=== PATIENT | male | born 1960 ===

== ENCOUNTER 2022-11-29 11:28 | Outpatient (AMB) | payer MEDICARE, SELFPAY ==
[2022-11-29 11:29] VITALS: BP 122/64; PULSE 78; O2SAT 100; BMI 19.1
--- NOTE | 2022-11-29 11:29 | MHC.PC.OV ---
Vital Signs 11/29/22 11:29 Height 5 ft 7 in Weight 122 lb BMI 19.1 BP 122/64 Blood Pressure Location Lt brachial Position Sitting Pulse 78 Pulse Source Pulse Oximeter Temp Source Skin Pulse Oximetry (%) 100 Oxygen Delivery Method Room Air Intake Visit Reasons: Hypercholesterolemis, GERD Motor Tester Required: No Allergies fluoxetine [From PROZAC] Allergy (Unknown, Verified 11/29/22 11:30) UNKNOWN pantoprazole [From PROTONIX] Allergy (Unknown, Verified 11/29/22 11:30) fast heart rate Tobacco use date assessed: 11/29/22 Dental Screening Dental Screen Date: 11/29/22 Did you have a dental visit in the last 12 months?: No Did you have a dental problem in the last 6 months where you did not have access to dental care?: No HPI Hypercholesterolemis, GERD HPI Details 62-year-old male with a history of GERD schizophrenia hypercholesterolemia coming in for follow-up. Patient was seen by nurse practitioner last January 2022. decline counselling, colon test,. blod work advised . [facility] Medical History (Updated 11/29/22 @ 12:19 by Prosper Heard MD) Hiatal hernia Hypercholesterolemia Vitamin D deficiency Schizophrenia GERD (gastroesophageal reflux disease) Surgical History No pertinent past surgical history Family History Father Diabetes Hypertension CVD (cardiovascular disease) Hx of heart surgery Mother Bladder cancer Parkinson disease Maternal Grandmother Lung cancer Maternal Grandfather Lung cancer Social History Housing: Apartment Patient Tobacco Use Status: Never used Tobacco service: No Cognitive needs: No Hearing needs: No Vision needs: No Questionnaire PHQ-9 Over the last 2 weeks, how often have you been bothered by any of the following problems? 1. Little interest or pleasure in doing things: not at all 2. Feeling down, depressed, or hopeless: not at all 3. Trouble falling or staying asleep, or sleeping too much: not at all 4. Feeling tired or having little energy: not at all 5. Poor appetite or overeating: not at all 6. Feeling bad about yourself - or that you are a failure or have let yourself or your family down: not at all 7. Trouble concentrating on things, such as reading the newspaper or watching television: not at all 8. Moving or speaking so slowly that other people could have noticed. Or the opposite - being so fidgety or restless that you have been moving around a lot more than usual: not at all 9. Thoughts that you would be better off or of hurting yourself in some way: not at all Total score: 0 Depression Screening Interpretation: Negative Source: Developed by Drs. Keith Savage, Faiza Greco, Bishop Rodriguez and colleagues, with an educational rodolfo from [employer]. Thrive Questionnaire Date Thrive assessed: 11/29/22 I am a: Patient What is your living situation today?: I have a steady place to live Within the past 12 months, did the food you bought not last and you didn't have the money to get more?: Never true Within the past 12 months, did you worry whether your food would run out before you got money to buy more?: Never true Do you have trouble paying for medicines?: No Do you have trouble getting transportation to medical appointments?: No Do you have trouble paying your heating and electricity bill?: No Do you have trouble taking care of your child, family member or friend?: No Do you have trouble with day-to-day activities such as bathing, preparing meals, shopping, managing finances, etc.?: No Are you currently unemployed and looking for a job?: No Are you interested in more education?: No AUDIT C Alcohol Use Questionnaire (AUDIT-C) 1. How often do you have a drink containing alcohol?: Never 3. How often do you have six or more drinks on one occasion?: Never Total Score: 0 JEANNETTE-7 AMB Questionnaire JEANNETTE-7 Date JEANNETTE - 7 assessed: 11/29/22 Feeling nervous, anxious, or on edge: 0 = Not at all Not being able to stop or control worryin = Not at all Worrying too much about different things: 0 = Not at all Trouble relaxin = Not at all Being so restless that it is hard to sit still: 0 = Not at all Becoming easily annoyed or irritable: 0 = Not at all Feeling afraid as if something awful might happen: 0 = Not at all Total JEANNETTE-7 score (0-4 normal; 5-9 mild; 10-14 moderate; 15-21 severe): 0 Source: Developed by Drs. Keith Savage, Faiza Greco, Bishop Rodriguez and colleagues, with an educational rodolfo from [employer]. Physical exam (Primary Care) Vital Signs: Last Vital Signs Pulse 78 11/29/22 11:29 BP 122/64 11/29/22 11:29 Pulse Ox 100 11/29/22 11:29 Oxygen Delivery Method Room Air 11/29/22 11:29 BMI result Body Mass Index 19.1 Tobacco/Smoking Status: Tobacco use Status Tobacco use date assessed 11/29/22 11/29/22 11:30 Patient Tobacco Use Status Never used Tobacco 11/29/22 11:37 PHQ-9: PHQ-9 Score PHQ-9: Total score 0 11/29/22 11:43 Depression Screening Interpretation: Negative Thrive Assessment: Date of Thrive Assessment Date Thrive assessed 11/29/22 11/29/22 11:30 Const General: alert; No acute distress Eyes Conjunctivae: conjunctivae normal Resp Auscultation: clear to auscultation bilaterally Cardio Rate: regular rate Rhythm: regular rhythm GI Inspection: Yes normal to inspection Extrem General: Yes normal to inspection and No edema Assessment and Plan Assessment & Plan (1) GERD (gastroesophageal reflux disease): Code(s): K21.9 - Gastro-esophageal reflux disease without esophagitis Plan: Avoid the foods that causes that usually spicy foods, tomato products, juices, coffee, soda and foods that your sensitive to. After eating do not lie down, allow 3-4 hours before in lie down. And keep the head of bed above 30 degrees to avoid the acid from going up. (2) Schizophrenia: Code(s): F20.9 - Schizophrenia, unspecified Plan: Advised to get counseling and therapy (3) Hypercholesterolemia: Code(s): E78.00 - Pure hypercholesterolemia, unspecified Plan: Avoid fried foods, chicken skin, eggs, butter margarine, pastries and meat. Be it pork or beef they have a lot of cholesterol. Reminded about blood work (4) Colon cancer screening declined: Code(s): Z53.20 - Procedure and treatment not carried out because of patient's decision for unspecified reasons Orders: Orders Complete Blood Count Auto Diff Today E78.00 - Pure hypercholesterolemia, unspecified Comprehensive Met. Panel Today E78.00 - Pure hypercholesterolemia, unspecified Free T4 (Free Thyroxine) Today E78.00 - Pure hypercholesterolemia, unspecified Thyroid Stimulating Hormone Today E78.00 - Pure hypercholesterolemia, unspecified Vitamin B12 and Folate Today E78.00 - Pure hypercholesterolemia, unspecified Lipid Panel Today E78.00 - Pure hypercholesterolemia, unspecified Prostate Specific Antigen Scr Today E78.00 - Pure hypercholesterolemia, unspecified Coding Level of Care Code Est Pt Level 4 (25364) Diagnoses GERD (gastroesophageal reflux disease) K21.9 Schizophrenia F20.9 Hypercholesterolemia E78.00 Colon cancer screening declined Z53.20
== END 2022-11-29 12:35 | disposition home or self-care (01) ==
PROVIDERS: Visit Provider Internal Medicine
DX: K21.9 Gastro-esophageal reflux disease without esophagitis (principal); F20.9 Schizophrenia, unspecified; E78.00 Pure hypercholesterolemia, unspecified; Z53.20 Procedure and treatment not carried out because of patient's decision for unspecified reasons
CPT/HCPCS: 99214

== ENCOUNTER 2023-02-17 08:48 | Outpatient (AMB) | payer MEDICARE, SELFPAY ==
[2023-02-17 08:55] VITALS: BP 142/92; PULSE 81; O2SAT 98; BMI 19.1
--- NOTE | 2023-02-17 08:55 | AM.OFFVISMDC ---
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 Patient is here for an annual well visit. Patient was advised colonoscopy. Declined and so Cologuard was requested but this was not done also. Patient was also noted on the blood work have an elevated PSA patient has not had blood work done. [facility] Medical History (Updated 02/17/23 @ 19:00 by Prosper Heard MD) Hiatal hernia Hypercholesterolemia Vitamin D deficiency Schizophrenia GERD (gastroesophageal reflux disease) Surgical History No pertinent past surgical history Family History Father Diabetes Hypertension CVD (cardiovascular disease) Hx of heart surgery Mother Bladder cancer Parkinson disease Maternal Grandmother Lung cancer Maternal Grandfather Lung cancer Social History Housing: Apartment Patient Tobacco Use Status: Never used Tobacco service: No Cognitive needs: No Hearing needs: No Vision needs: No Questionnaire Medicare Wellness Checkup What is your age?: 65-69 (62) What gender do you identify with?: male During the past 4 weeks, how much have you been bothered by emotional problems such as feeling anxious, depressed, irritable, sad or downhearted, and blue?: slightly During the past 4 weeks, has your physical & emotional health limited your social activities with family, friends, neighbors, or groups?: not at all During the past 4 weeks, how much bodily pain have you generally had?: no pain During the past 4 weeks, was someone available to help you if you needed & wanted help?: no, not at all During the past 4 weeks, what was the hardest physical activity you could do for at least 2 minutes?: moderate Can you get to places out of walking distance without help? (For eg., can you travel alone on buses, taxis or drive your car?): No Can you go shopping for groceries or clothes without someone's help?: Yes Can you prepare your own meals?: Yes Can you do your housework without help?: Yes Because of any health problems, do you need the help of another person with your personal care needs such as eating, bathing, dressing or getting around the house?: No Can you handle your own money without help?: Yes During the past 4 weeks, how would you rate your health in general?: good During the past 4 weeks how have things been going for you?: pretty well Are you having difficulties driving your car?: not applicable, I don't use a car Do you always fasten your seat belt when you are in a car?: yes, usually During past 4 weeks, have you been bothered by the following: never: Trouble eating well? and Problems using the telephone?, seldom: Sexual problems? and Teeth or denture problems? and sometimes: Falling or dizzy when standing up and Tiredness or fatigue? Have you fallen 2 or more times in the past year?: No Are you afraid of falling?: No Are you a smoker?: no During the past 4 weeks, how many drinks of wine, beer, or other alcoholic beverages did you have?: no alcohol at all Do you exercise for about 20 minutes 3 or more times a week?: yes, all the time Have you been given information to help with the following?: yes: Keeping track of your medications? and no: Hazards in your house that might hurt you? How often do you have trouble taking medicines the way you have been told to take them?: sometimes I take medicine as prescribed How confident are you that you can control & manage most of your health problems?: I do not have any health problems What is your race?: White PHQ-9 Over the last 2 weeks, how often have you been bothered by any of the following problems? 1. Little interest or pleasure in doing things: not at all 2. Feeling down, depressed, or hopeless: not at all 3. Trouble falling or staying asleep, or sleeping too much: not at all 4. Feeling tired or having little energy: not at all 5. Poor appetite or overeating: not at all 6. Feeling bad about yourself - or that you are a failure or have let yourself or your family down: not at all 7. Trouble concentrating on things, such as reading the newspaper or watching television: not at all 8. Moving or speaking so slowly that other people could have noticed. Or the opposite - being so fidgety or restless that you have been moving around a lot more than usual: not at all 9. Thoughts that you would be better off or of hurting yourself in some way: not at all Total score: 0 95698 - PHQ-9 Billing: Yes Source: Developed by Drs. Keith Savage, Faiza Greco, Bishop Rodriguez and colleagues, with an educational rodolfo from [employer]. Review of Systems Const Denies poor appetite and Denies weakness Eyes Denies no additional complaints ENT Reports Normal hearing present, Denies dizziness, Denies nasal congestion, Denies tinnitus and Denies sore throat Card Denies chest pain, Denies syncope, Denies rapid heart rate and Denies dyspnea Resp Denies cough and Denies dyspnea GI Denies change in stool character, Reports constipation, Denies diarrhea, Denies nausea and Denies vomiting Denies dysuria and Denies urinary frequency Neuro Reports Normal hearing present, Denies confusion, Denies dizziness, Denies syncope and Denies weakness Psych Denies confusion Physical Exam Vital Signs: Last Vital Signs Pulse 81 02/17/23 08:55 BP 138/70 02/17/23 09:21 Pulse Ox 98 02/17/23 08:55 Oxygen Delivery Method Room Air 02/17/23 08:55 BMI result Body Mass Index 19.1 Const General: No confusion Orientation/consciousness: No confusion HEENT Head: Yes normocephalic Ears: external ears normal and TM's normal bilaterally Face and sinus: Yes normal facial exam Mouth: moist mucous membranes Throat: Yes tonsils normal Eyes Conjunctivae: conjunctivae normal Pupils: Equal, round and reactive pupils present and Pupil accommodation reflex normal Direct Ophthalmoscopy: normal light reflex Neck Neck: No lymphadenopathy Thyroid: Thyroid normal Chest Chest palpation & inspection: normal inspection of the chest Resp Effort & Inspection: normal respiratory effort and no audible wheezes Auscultation: clear to auscultation bilaterally, no crackles, no wheezes and lung sounds not diminished Cardio Rate: regular rate Rhythm: regular rhythm Peripheral pulses: radial pulses present and dorsalis pedis present GI Palpation (GI): no masses Auscultation: normal bowel sounds and normoactive bowel sounds Rectal Exam - Male: Yes deferred Skin General skin exam: no rashes or lesions noted Rashes: no rashes Neuro General: No confusion Cranial nerves: Yes Equal, round and reactive pupils present and Yes Normal hearing present Cognition (Neuro): normal cognition Gait exam (Neuro): Normal gait present Motor exam (neuro): 5/5 motor strength present throughout Deep tendon reflexes (DTR's): Right brachioradialis reflex intensity grade: 2+, Left brachioradialis reflex intensity grade: 2+, Right patellar reflex intensity grade: 2+ and Left patellar reflex intensity grade: 2+ Extrem General: No edema Assessment & Plan Assessment & Plan (1) Medicare annual wellness visit, subsequent: Code(s): Z00.00 - Encounter for general adult medical examination without abnormal findings Plan: Discussed about the blood work needs to be done as well as preventive measures like colon cancer screen (2) Colon cancer screening: Code(s): Z12.11 - Encounter for screening for malignant neoplasm of colon Plan: Reminded about the: Testing (3) PSA elevation: Code(s): R97.20 - Elevated prostate specific antigen [PSA] Plan: Patient is reminded again about the elevated PSA and the need to follow-up. (4) Hypercholesterolemia: Code(s): E78.00 - Pure hypercholesterolemia, unspecified Plan: Avoid fried foods, chicken skin, eggs, butter margarine, pastries and meat. Be it pork or beef they have a lot of cholesterol LDL goal of less than 130 and triglyceride of less than 150 (5) GERD (gastroesophageal reflux disease): Code(s): K21.9 - Gastro-esophageal reflux disease without esophagitis Qualifiers: Esophagitis presence: esophagitis presence not specified Qualified Code(s): K21.9 - Gastro-esophageal reflux disease without esophagitis Plan: Avoid the foods that causes that usually spicy foods, tomato products, juices, coffee, soda and foods that your sensitive to. After eating do not lie down, allow 3-4 hours before in lie down. And keep the head of bed above 30 degrees to avoid the acid from going up. (6) Schizophrenia: Code(s): F20.9 - Schizophrenia, unspecified Qualifiers: Schizophrenia type: other Qualified Code(s): F20.89 - Other schizophrenia Plan: Presently stable (7) Dysphagia: Code(s): R13.10 - Dysphagia, unspecified Qualifiers: Dysphagia type: oropharyngeal phase Qualified Code(s): R13.12 - Dysphagia, oropharyngeal phase Plan: barium swallow requested Orders: Orders PSA,Total (Free>4and<10) Today R97.20 - Elevated prostate specific antigen [PSA] Referrals Cologuard Test Z12.11 - Encounter for screening for malignant neoplasm of colon Quality Reporting (2019) Depression/Bipolar (159/160/161/177) PHQ-9: Total score: 0 Coding Level of Care Code Medicare Subsequent (G0439) Diagnoses Medicare annual wellness visit, subsequent Z00.00 Colon cancer screening Z12.11 PSA elevation R97.20 Hypercholesterolemia E78.00 Gastroesophageal reflux disease, unspecified whether esophagitis present K21.9 Esophagitis presence: esophagitis presence not specified Other schizophrenia F20.89 Schizophrenia type: other Oropharyngeal dysphagia R13.12 Dysphagia type: oropharyngeal phase
[2023-02-17 09:21] VITALS: BP 138/70
== END 2023-02-17 09:50 | disposition home or self-care (01) ==
PROVIDERS: PCP Internal Medicine; Visit Provider Internal Medicine
DX: Z00.00 Encounter for general adult medical examination without abnormal findings (principal); F20.89 Other schizophrenia; R97.20 Elevated prostate specific antigen [PSA]; E78.00 Pure hypercholesterolemia, unspecified; K21.9 Gastro-esophageal reflux disease without esophagitis; R13.12 Dysphagia, oropharyngeal phase
CPT/HCPCS: G0439

== ENCOUNTER 2023-02-17 10:11 | Outpatient (REF) | payer MEDICARE, SELFPAY ==
[2023-02-17 11:58] LABS: Alanine Aminotransferase 14 U/L (0-40); Albumin Level 4.5 g/dL (3.5-5.0); Alkaline Phosphatase 49 U/L (39-117); Anion Gap 13 (12-20); Aspartate Amino Transferase 26 U/L (5-37); Bilirubin Total 0.3 mg/dL (0.0-1.0); Blood Urea Nitrogen 16 mg/dL (9-16); Calcium 9.8 mg/dL (8.4-10.2); Carbon Dioxide 28 mmol/L (22-29); Chloride 101 mmol/L (96-108); Estimated Glomerular Filt Rate > 60; Glucose Random 104 mg/dL (60-115); Potassium 4.1 mmol/L (3.3-5.1); Sodium 138 mmol/L (135-145); Total Protein 7.9 g/dL (6.5-8.0)
[2023-02-17 12:17] LABS: Thyroid Stimulating Hormone 0.62 uIU/mL (0.32-4.0)
== END 2023-02-17 10:12 | disposition home or self-care (01) ==
LOC: HO.LAB 10:11
PROVIDERS: PCP Internal Medicine; Visit Provider Internal Medicine
DX: E78.00 Pure hypercholesterolemia, unspecified (principal)
CPT/HCPCS: 36415; 80053; 84439; 84443

== ENCOUNTER 2023-02-18 13:13 | Outpatient (REF) | payer MEDICARE, SELFPAY ==
[2023-02-18 13:24] LABS: MANUAL DIFF FLAG NO
[2023-02-18 13:54] LABS: Basophils Absolute Auto 0.1 X10*3/uL (0.0-0.2); Basophils Percent Auto 1.1 % (0-2); Eosinophils Absolute Auto 0.1 X10*3/uL (0.0-0.4); Eosinophils Percent Auto 1.7 % (0-4); Hematocrit 46.2 % (42.0-52.0); Hemoglobin 15.1 g/dl (14.0-18.0); Imm Gran Abs Auto 0.05 X10*3/uL (0.00-0.03); Imm Gran Pct Auto 0.8 % (0.0-0.4); Lymphocytes Absolute Auto 1.8 X10*3/uL (1.2-4.9); Lymphocytes Percent Auto 27.7 % (20-40); Mean Corpuscular HGB Conc 32.7 g/dl (31.0-36.0); Mean Corpuscular Volume 91.7 fL (80.0-98.0); Mean Platelet Volume 9.5 fL (9.4-12.4); Monocytes Absolute Auto 0.5 X10*3/uL (0.1-1.2); Monocytes Percent Auto 7.6 % (2-11); Neutrophils Absolute Auto 3.9 x10*3/uL (2.0-8.3); Neutrophils Percent Auto 61.1 % (45-73); Platelet Count 312 X10*3/uL (160-400); Red Blood Count 5.04 X10*6/uL (4.60-5.80); White Blood Count 6.3 X10*3/uL (4.8-10.8)
[2023-02-18 14:40] LABS: PSA,Total (Free>4and<10) 3.41 ng/mL (0.00-4.00)
[2023-02-18 14:53] LABS: Folate 11.6 ng/mL (> or = 4.0); Vitamin B12 479 pg/mL (200-900)
== END 2023-02-18 13:14 | disposition home or self-care (01) ==
LOC: HO.LAB 13:13
PROVIDERS: PCP Internal Medicine; Visit Provider Internal Medicine
DX: E78.00 Pure hypercholesterolemia, unspecified (principal); R97.20 Elevated prostate specific antigen [PSA]; Z12.5 Encounter for screening for malignant neoplasm of prostate
CPT/HCPCS: 36415; 82607; 82746; 84153; 85025

== ENCOUNTER 2023-05-23 12:56 | Outpatient (AMB) | payer MEDICARE, SELFPAY ==
[2023-05-23 12:57] VITALS: BP 142/70; PULSE 96; O2SAT 97; BMI 20.2
--- NOTE | 2023-05-23 12:57 | A.OFFPC_ITS ---
Vital Signs 05/23/23 12:57 05/23/23 13:10 Height 5 ft 7 in Weight 129 lb 0.6 oz BMI 20.2 BP 142/70 H 160/80 H Blood Pressure Location Lt brachial Lt brachial Position Sitting Sitting Pulse 96 Pulse Source Pulse Oximeter Pulse Oximetry (%) 97 Oxygen Delivery Method Room Air Intake Visit Reasons: gerd, schizophrenia Intake Note: Patient is here to follow up Banking Analyst Required: No Allergies fluoxetine [From PROZAC] Allergy (Unknown, Verified 05/23/23 13:01) UNKNOWN pantoprazole [From PROTONIX] Allergy (Unknown, Verified 05/23/23 13:01) fast heart rate Tobacco use date assessed: 05/23/23 Dental Screening Dental Screen Date: 05/23/23 HPI gerd, schizophrenia HPI Details 62-year-old male with schizophrenia with a history of hypercholesterolemia GERD coming in for follow-up. Last seen for physical exam/wellness February 2023. Concern on [employer] amirah ride on new family car. - concern episodes of personality changes and doing things family is not approving off. Discussed with the patient that if this gets persistent will need to get psychiatric help for patient safety. Meanwhile concerned blood pressure is elevated [facility] Medical History (Updated 05/23/23 @ 13:23 by Prosper Heard MD) Hiatal hernia Hypercholesterolemia Vitamin D deficiency Schizophrenia GERD (gastroesophageal reflux disease) Surgical History No pertinent past surgical history Family History Father Diabetes Hypertension CVD (cardiovascular disease) Hx of heart surgery Mother Bladder cancer Parkinson disease Maternal Grandmother Lung cancer Maternal Grandfather Lung cancer Social History Housing: Apartment Patient Tobacco Use Status: Never used Tobacco service: No Cognitive needs: No Hearing needs: No Vision needs: No Questionnaire PHQ-9 Over the last 2 weeks, how often have you been bothered by any of the following problems? 1. Little interest or pleasure in doing things: not at all 2. Feeling down, depressed, or hopeless: not at all 3. Trouble falling or staying asleep, or sleeping too much: not at all 4. Feeling tired or having little energy: not at all 5. Poor appetite or overeating: not at all 6. Feeling bad about yourself - or that you are a failure or have let yourself or your family down: not at all 7. Trouble concentrating on things, such as reading the newspaper or watching television: not at all 8. Moving or speaking so slowly that other people could have noticed. Or the opposite - being so fidgety or restless that you have been moving around a lot more than usual: not at all 9. Thoughts that you would be better off or of hurting yourself in some way: not at all Total score: 0 Depression Screening Interpretation: Negative Depression Screening Done: Yes Source: Developed by Drs. Keith Savage, Faiza Greco, Bishop Rodriguez and colleagues, with an educational rodolfo from [employer] (formerly [employer]). Thrive Questionnaire Date Thrive assessed: 05/23/23 I am a: Patient What is your living situation today?: I have a steady place to live Within the past 12 months, did the food you bought not last and you didn't have the money to get more?: Never true Within the past 12 months, did you worry whether your food would run out before you got money to buy more?: Never true Do you have trouble paying for medicines?: No Do you have trouble getting transportation to medical appointments?: No Do you have trouble paying your heating and electricity bill?: No Do you have trouble taking care of your child, family member or friend?: No Do you have trouble with day-to-day activities such as bathing, preparing meals, shopping, managing finances, etc.?: No Are you currently unemployed and looking for a job?: No Are you interested in more education?: No THRIVE Score: 0 AUDIT C Alcohol Use Questionnaire (AUDIT-C) 1. How often do you have a drink containing alcohol?: Never 3. How often do you have six or more drinks on one occasion?: Never Total Score: 0 JEANNETTE-7 AMB Questionnaire JEANNETTE-7 Date JEANNETTE - 7 assessed: 05/23/23 Feeling nervous, anxious, or on edge: 0 = Not at all Not being able to stop or control worryin = Not at all Worrying too much about different things: 0 = Not at all Trouble relaxin = Not at all Being so restless that it is hard to sit still: 0 = Not at all Becoming easily annoyed or irritable: 0 = Not at all Feeling afraid as if something awful might happen: 0 = Not at all Total JEANNETTE-7 score (0-4 normal; 5-9 mild; 10-14 moderate; 15-21 severe): 0 Source: Developed by Drs. Keith Savage, Faiza Greco, Bishop Rodriguez and colleagues, with an educational rodolfo from [employer] (formerly [employer]). Physical exam (Primary Care) Vital Signs: Last Vital Signs Pulse 96 05/23/23 12:57 BP 142/70 H 05/23/23 12:57 Pulse Ox 97 05/23/23 12:57 Oxygen Delivery Method Room Air 05/23/23 12:57 BMI result Body Mass Index 20.2 Tobacco/Smoking Status: Tobacco use Status Tobacco use date assessed 05/23/23 05/23/23 13:05 Patient Tobacco Use Status Never used Tobacco 05/23/23 13:05 PHQ-9: PHQ-9 Score PHQ-9: Total score 0 05/23/23 13:05 Depression Screening Interpretation: Negative Thrive Assessment: Date of Thrive Assessment Date Thrive assessed 05/23/23 05/23/23 13:05 Const General: alert; No acute distress Eyes Conjunctivae: conjunctivae normal Resp Auscultation: clear to auscultation bilaterally Cardio Rate: regular rate Rhythm: regular rhythm GI Inspection: Yes normal to inspection Extrem General: Yes normal to inspection and No edema Assessment and Plan Assessment & Plan (1) GERD (gastroesophageal reflux disease): Code(s): K21.9 - Gastro-esophageal reflux disease without esophagitis Qualifiers: Esophagitis presence: esophagitis presence not specified Qualified Code(s): K21.9 - Gastro-esophageal reflux disease without esophagitis Plan: Avoid the foods that causes that usually spicy foods, tomato products, juices, coffee, soda and foods that your sensitive to. After eating do not lie down, allow 3-4 hours before in lie down. And keep the head of bed above 30 degrees to avoid the acid from going up. Presently on omeprazole (2) Dysphagia: Code(s): R13.10 - Dysphagia, unspecified Qualifiers: Dysphagia type: oropharyngeal phase Qualified Code(s): R13.12 - Dysphagia, oropharyngeal phase Plan: Patient has not done the test (3) PSA elevation: Code(s): R97.20 - Elevated prostate specific antigen [PSA] Plan: Continue to monitor February 2023 last blood work (4) Colon cancer screening: Code(s): Z12.11 - Encounter for screening for malignant neoplasm of colon Plan: Declined colonoscopy (5) Schizophrenia: Code(s): F20.9 - Schizophrenia, unspecified Qualifiers: Schizophrenia type: other Qualified Code(s): F20.89 - Other schizophrenia Plan: Stable presently (6) Hypercholesterolemia: Code(s): E78.00 - Pure hypercholesterolemia, unspecified Plan: Avoid fried foods, chicken skin, eggs, butter margarine, pastries and meat. Be it pork or beef they have a lot of cholesterol (7) Blood pressure elevated without history of HTN: Code(s): R03.0 - Elevated blood-pressure reading, without diagnosis of hypertension Plan: Decrease salt intake and continue to monitor blood pressure. And record Coding Level of Care Code Est Pt Level 4 (25344) Diagnoses Gastroesophageal reflux disease, unspecified whether esophagitis present K21.9 Esophagitis presence: esophagitis presence not specified Oropharyngeal dysphagia R13.12 Dysphagia type: oropharyngeal phase PSA elevation R97.20 Colon cancer screening Z12.11 Other schizophrenia F20.89 Schizophrenia type: other Hypercholesterolemia E78.00 Blood pressure elevated without history of HTN R03.0
[2023-05-23 13:10] VITALS: BP 160/80
== END 2023-05-23 13:25 | disposition home or self-care (01) ==
PROVIDERS: PCP Internal Medicine; Visit Provider Internal Medicine
DX: K21.9 Gastro-esophageal reflux disease without esophagitis (principal); F20.89 Other schizophrenia; R13.12 Dysphagia, oropharyngeal phase; R97.20 Elevated prostate specific antigen [PSA]; Z12.11 Encounter for screening for malignant neoplasm of colon; E78.00 Pure hypercholesterolemia, unspecified; R03.0 Elevated blood-pressure reading, without diagnosis of hypertension
CPT/HCPCS: 99214

== ENCOUNTER 2024-03-05 11:20 | Outpatient (AMB) | payer MEDICARE, SELFPAY ==
--- NOTE | 2024-03-05 11:24 | AM.OFFVISMDC ---
Intake Vital Signs 03/05/24 11:25 Height 5 ft 7 in Weight 120 lb 2 oz BMI 18.8 BP 130/78 Blood Pressure Location Lt brachial Position Sitting Pulse 92 Pulse Source Pulse Oximeter Pulse Oximetry (%) 97 Oxygen Delivery Method Room Air Intake Visit Reasons: SWV [id number] Allergies fluoxetine [From PROZAC] Allergy (Unknown, Verified 03/05/24 11:29) UNKNOWN pantoprazole [From PROTONIX] Allergy (Unknown, Verified 03/05/24 11:29) fast heart rate Medication List - Last Reconciled 03/05/24 by Prosper Heard MD brimonidine 0.2% 1 drp ophthalmic (eye) BID omeprazole 20 mg PO DAILY HPI SWV G0439 HPI Details The patient is a 63-year-old male presenting with recent weight loss noted as 9 pounds since the last visit. He typically fluctuates between 122 to 129 pounds but this recent loss is significant. His history includes issues with swallowing, though currently he is not experiencing any significant problems and reports good control. Previously, he experienced adverse reactions to pantoprazole and is now currently taking omeprazole. He wears noise-canceling headgear frequently leading to temporary auditory isolation, . The patient denies new surgeries or diagnoses but exhibits strained family relationships potentially linked to behavioral concerns. - Recommended getting the shingles vaccine (not done at the clinic but available in pharmacies). - Encouraged flu vaccination for the current season which the patient has received. - Discussed prostate health management with specific instructions concerning biking restrictions prior to PSA testing to prevent elevated levels. - Regular exercise regimen includes using an elliptical and biking, although rides are nocturnal. - Denies use of tobacco, drugs, or alcohol. - Lives independently but reports conflicts with neighbors, showing potentially concerning behaviors such as pouring gasoline on lawns. - Experiences intermittent sleep with frequent nighttime urination. - Ears: Reports hearing issues due to headgear use. - Gastrointestinal: Denies nausea and vomiting but reports occasional swallowing difficulty. - Genitourinary: Reports nocturia. - Exercise: Reports frequent use of elliptical and biking. Family has expressed patient's lack of inhibition with regards to samples of patient's daughter who does not want to meet with him has been trying to make knocking noises to get somebody is attention at home patient in the office was knocking on wall making sounds. And the previous interaction of throwing gas in somebody else's lawn. Discussed my concerns with this and that if needed to let me know if the behavior continuous. [facility] Medical History Hiatal hernia Hypercholesterolemia Vitamin D deficiency Schizophrenia GERD (gastroesophageal reflux disease) Surgical History No pertinent past surgical history Family History Father Diabetes Hypertension CVD (cardiovascular disease) Hx of heart surgery Mother Bladder cancer Parkinson disease Maternal Grandmother Lung cancer Maternal Grandfather Lung cancer Social History Housing: Apartment Patient Tobacco Use Status: Never used Tobacco service: No Cognitive needs: No Hearing needs: No Vision needs: No Questionnaire Medicare Wellness Checkup What gender do you identify with?: male During the past 4 weeks, how much have you been bothered by emotional problems such as feeling anxious, depressed, irritable, sad or downhearted, and blue?: slightly During the past 4 weeks, has your physical & emotional health limited your social activities with family, friends, neighbors, or groups?: not at all During the past 4 weeks, how much bodily pain have you generally had?: very mild pain During the past 4 weeks, was someone available to help you if you needed & wanted help?: yes, quite a bit During the past 4 weeks, what was the hardest physical activity you could do for at least 2 minutes?: heavy Can you get to places out of walking distance without help? (For eg., can you travel alone on buses, taxis or drive your car?): Yes Can you go shopping for groceries or clothes without someone's help?: Yes Can you prepare your own meals?: Yes Can you do your housework without help?: Yes Because of any health problems, do you need the help of another person with your personal care needs such as eating, bathing, dressing or getting around the house?: Yes Can you handle your own money without help?: No (cousin helps) During the past 4 weeks, how would you rate your health in general?: good During the past 4 weeks how have things been going for you?: pretty well Are you having difficulties driving your car?: not applicable, I don't use a car Do you always fasten your seat belt when you are in a car?: yes, usually During past 4 weeks, have you been bothered by the following: never: Falling or dizzy when standing up, Sexual problems?, Trouble eating well?, Teeth or denture problems? and Problems using the telephone? and seldom: Tiredness or fatigue? Have you fallen 2 or more times in the past year?: No Are you afraid of falling?: No Are you a smoker?: no During the past 4 weeks, how many drinks of wine, beer, or other alcoholic beverages did you have?: no alcohol at all Do you exercise for about 20 minutes 3 or more times a week?: yes, all the time Have you been given information to help with the following?: yes: Hazards in your house that might hurt you? and yes: Keeping track of your medications? How often do you have trouble taking medicines the way you have been told to take them?: I always take medicine as prescribed How confident are you that you can control & manage most of your health problems?: very confident What is your race?: White PHQ-9 Over the last 2 weeks, how often have you been bothered by any of the following problems? 1. Little interest or pleasure in doing things: not at all 2. Feeling down, depressed, or hopeless: not at all 3. Trouble falling or staying asleep, or sleeping too much: not at all 4. Feeling tired or having little energy: not at all 5. Poor appetite or overeating: not at all 6. Feeling bad about yourself - or that you are a failure or have let yourself or your family down: not at all 7. Trouble concentrating on things, such as reading the newspaper or watching television: not at all 8. Moving or speaking so slowly that other people could have noticed. Or the opposite - being so fidgety or restless that you have been moving around a lot more than usual: not at all 9. Thoughts that you would be better off or of hurting yourself in some way: not at all Total score: 0 Depression Screening Interpretation: Negative Depression Screening Done: Yes 72370 - PHQ-9 Billing: Yes Source: Developed by Drs. Keith Savage, Faiza Greco, Bishop Rodriguez and colleagues, with an educational rodolfo from [employer]. Review of Systems Const Denies poor appetite and Denies weakness Eyes Denies no additional complaints ENT Reports Normal hearing present, Denies dizziness, Denies nasal congestion, Denies tinnitus and Denies sore throat Card Denies chest pain, Denies syncope, Denies rapid heart rate and Denies dyspnea Resp Denies cough and Denies dyspnea GI Denies change in stool character, Reports constipation, Denies diarrhea, Denies nausea and Denies vomiting Denies dysuria and Denies urinary frequency Neuro Reports Normal hearing present, Denies confusion, Denies dizziness, Denies syncope and Denies weakness Psych Denies confusion Physical Exam Vital Signs: Last Vital Signs Pulse 92 03/05/24 11:25 BP 130/78 03/05/24 11:25 Pulse Ox 97 03/05/24 11:25 Oxygen Delivery Method Room Air 03/05/24 11:25 BMI result Body Mass Index 18.8 Const General: No confusion Orientation/consciousness: No confusion HEENT Head: Yes normocephalic Ears: external ears normal and TM's normal bilaterally Face and sinus: Yes normal facial exam Mouth: moist mucous membranes Throat: Yes tonsils normal Eyes Conjunctivae: conjunctivae normal Pupils: Equal, round and reactive pupils present and Pupil accommodation reflex normal Direct Ophthalmoscopy: normal light reflex Neck Neck: No lymphadenopathy Thyroid: Thyroid normal Chest Chest palpation & inspection: normal inspection of the chest Resp Effort & Inspection: normal respiratory effort and no audible wheezes Auscultation: clear to auscultation bilaterally, no crackles, no wheezes and lung sounds not diminished Cardio Rate: regular rate Rhythm: regular rhythm Peripheral pulses: radial pulses present and dorsalis pedis present GI Other: declined Palpation (GI): no masses Auscultation: normal bowel sounds and normoactive bowel sounds Rectal Exam - Male: Yes deferred Other: declined Skin General skin exam: no rashes or lesions noted Rashes: no rashes Neuro General: No confusion Cranial nerves: Yes Equal, round and reactive pupils present and Yes Normal hearing present Cognition (Neuro): normal cognition Gait exam (Neuro): Normal gait present Motor exam (neuro): 5/5 motor strength present throughout Deep tendon reflexes (DTR's): Right brachioradialis reflex intensity grade: 2+, Left brachioradialis reflex intensity grade: 2+, Right patellar reflex intensity grade: 2+ and Left patellar reflex intensity grade: 2+ Extrem General: No edema Assessment & Plan Assessment & Plan (1) Medicare annual wellness visit, subsequent: Code(s): Z00.00 - Encounter for general adult medical examination without abnormal findings (2) Schizophrenia: Code(s): F20.9 - Schizophrenia, unspecified Qualifiers: Schizophrenia type: other Qualified Code(s): F20.89 - Other schizophrenia (3) Hypercholesterolemia: Code(s): E78.00 - Pure hypercholesterolemia, unspecified (4) GERD (gastroesophageal reflux disease): Code(s): K21.9 - Gastro-esophageal reflux disease without esophagitis Qualifiers: Esophagitis presence: esophagitis presence not specified Qualified Code(s): K21.9 - Gastro-esophageal reflux disease without esophagitis (5) Colon cancer screening: Code(s): Z12.11 - Encounter for screening for malignant neoplasm of colon Plan - Monitor weight and consider dietary consultation due to recent significant weight loss. - Continue current medication regimen of omeprazole and eye drops, ensuring no adverse reactions. - Confirm with the patient the benefits of compliance with routine colon cancer screening methods and discuss alternative strategies if unwilling to pursue current recommendations. - Behavioral health referral offered for evaluation of reported behaviors and to aid in social dynamics improvement. - Review cardiovascular risk factors due to significant family history and manage hypertension as per current guidelines. - Encourage patient to avoid riding bikes prior to upcoming PSA testing. During our consultation, we discussed the importance of addressing the recent weight loss and ensuring adequate dietary intake. We reviewed the current medication regimen and emphasized the need for adherence to omeprazole therapy due to previous issues with pantoprazole. I recommended against nocturnal physical activity due to safety concerns. The patient was hesitant to pursue colonoscopy screening, and we explored alternative screening options. I explained the need for PSA testing without prior bike riding to reduce false elevation risks. We discussed a referral to behavioral health services to address potential behavioral concerns elevated during family interactions. We also touched on the necessity of remaining compliant with flu vaccination and consider the shingles vaccine for future disease prevention. - Monitor weight and notify of any further losses. - Continue current medications: omeprazole and prescribed eye drops. - Schedule and complete prostate-specific antigen (PSA) test following guidelines to avoid false elevation. - Keep a routine check on blood pressure and report significant changes. - Consider scheduling shingles vaccination with a pharmacist. - Maintain regular physical activity but avoid nocturnal biking to reduce risks. - Follow up with behavioral health referral if willing for support with social interaction issues. - Keep up with flu vaccinations and general hygienic practices for flu season. - Be cautious with neighbor interactions and adhere to societal and legal rules. Orders: Orders Complete Blood Count Auto Diff Today E78.00 - Pure hypercholesterolemia, unspecified Prostate Specific Antigen Scr Today E78.00 - Pure hypercholesterolemia, unspecified Thyroid Stimulating Hormone Today E78.00 - Pure hypercholesterolemia, unspecified Vitamin B12 and Folate Today E78.00 - Pure hypercholesterolemia, unspecified Lipid Panel Today E78.00 - Pure hypercholesterolemia, unspecified Hemoglobin A1c Today E78.00 - Pure hypercholesterolemia, unspecified Comprehensive Met. Panel Today E78.00 - Pure hypercholesterolemia, unspecified Free T4 (Free Thyroxine) Today E78.00 - Pure hypercholesterolemia, unspecified Referrals Psychiatry Outpatient Consultation Service F20.89 - Other schizophrenia Quality Reporting (2019) Depression/Bipolar (159/160/161/177) PHQ-9: Total score: 0 Coding Level of Care Code Medicare Subsequent (G0439) Diagnoses Medicare annual wellness visit, subsequent Z00.00 Other schizophrenia F20.89 Schizophrenia type: other Hypercholesterolemia E78.00 Gastroesophageal reflux disease, unspecified whether esophagitis present K21.9 Esophagitis presence: esophagitis presence not specified Colon cancer screening Z12.11 Additional Codes PHQ-9 - 68450 - PHQ-9 Billing: Yes ([id number])
[2024-03-05 11:25] VITALS: BP 130/78; PULSE 92; O2SAT 97; BMI 18.8
== END 2024-03-05 12:13 | disposition home or self-care (01) ==
PROVIDERS: PCP Internal Medicine; Visit Provider Internal Medicine
DX: Z00.00 Encounter for general adult medical examination without abnormal findings (principal); F20.89 Other schizophrenia; E78.00 Pure hypercholesterolemia, unspecified; K21.9 Gastro-esophageal reflux disease without esophagitis; Z12.11 Encounter for screening for malignant neoplasm of colon

== ENCOUNTER → 2024-03-05 11:20 | Outpatient (BNVA) | payer MEDICARE, SELFPAY | PROVIDERS: PCP Internal Medicine; Visit Provider Internal Medicine | DX: Z00.00 Encounter for general adult medical examination without abnormal findings (principal); F20.89 Other schizophrenia; E78.00 Pure hypercholesterolemia, unspecified; K21.9 Gastro-esophageal reflux disease without esophagitis | CPT/HCPCS: 96127 ==